=== PATIENT | male | born 1995 | race Caucasian/White ===

== ENCOUNTER 2025-01-14 09:04 | Emergency (ER) | payer OTHER, SELFPAY ==
[2025-01-14 09:05] VITALS: BP 190/142; PULSE 89; RESP 16; TEMP 36.6; O2SAT 99; BMI 35.6
--- NOTE | 2025-01-14 09:18 | EX.ED.GENINJ ---
HPI History of Present Illness Chief Complaint: Head Injury Informant: patient Narrative Narrative: 29-year-old male presenting to the emergency room with head injury. Patient was at work today using a left when it slipped and he tried to catch it falling forward into the metal resulting in a head injury. He notes bleeding from the left side of his forehead. He is unsure of his last tetanus. There is no loss of conscious nausea vomiting significant headache neck pain vision changes. Tetanus Immunization: Unknown PFSH PFSH Allergy/AdvReac Type Severity Reaction Status Date / Time No Known Allergies Allergy Verified 01/14/25 09:05 ROS ROS ED Constitutional Constitutional ED: Denies chills, fever(s) or weight loss Eyes Eyes: Denies blurry vision, change in vision or diplopia ENT ENT ED: Denies ear pain, rhinorrhea or sore throat Cardiovascular Cardiovascular: Denies chest pain, orthopnea, palpitations or racing heartbeat Respiratory/Chest Respiratory/Chest: Denies cough, dyspnea or orthopnea Gastrointestinal Gastrointestinal: Denies abdominal pain, diarrhea, nausea or vomiting Genitourinary Genitourinary ED: Denies dysuria, hematuria or urinary frequency Musculoskeletal Musculoskeletal: Denies arthralgias or myalgias Integumentary Reports other Details: Scalp laceration ; Denies abscess or rash Neurologic Neurologic: Denies headache(s), paresthesias or weakness Psychiatric Psychiatric: Denies anxiety, depression, suicidal ideation or suicidal thoughts Endocrine Endocrinology: Denies polydipsia, polyphagia or polyuria Allergic/Immunologic Allergic/Immunologic ED: Denies mouth swelling, tongue swelling or urticaria EXAM Physical Exam Const Vital Signs: 01/14/25 09:05 Temperature 97.8 F Temperature Source Oral Pulse Rate 89 Respiratory Rate 16 Blood Pressure 190/142 H Blood Pressure Mean 158 Pulse Ox 99 Oxygen Delivery Method Room Air Positive well nourished and well developed General Appearance ED: well developed HEENT Reports normocephalic, head/scalp atraumatic and moist mucous membranes HEENT Narrative: There is a 3 cm linear left frontal scalp laceration that is gaping by about 3 mm. No palpable bony depressions. Wound appears clear. Eyes PERRL and EOMs intact bilaterally Neck full ROM, no lymphadenopathy, supple and no JVD General: Negative for tenderness Resp normal respiratory effort and clear to auscultation bilaterally Cardio regular rate, regular rhythm and no murmurs GI normal to inspection, nondistended, normoactive bowel sounds and non-tender Palpation: soft Back/Spine no CVA tenderness and normal ROM Extremity normal to inspection General Extremety ED: Negative for edema General Extremity: Negative for edema Neuro oriented x3 and CN's II-XII intact bilaterally Sensorium / Orientation: alert Motor Exam: strength 5/5 throughout Psych mental status grossly normal Mood & Affect: Negative for depressed or tearful Skin no rashes or lesions noted and no wounds MDM MDM MDM Narrative Medical decision making narrative: Differential diagnosis includes but not limited to laceration foreign body skull fracture concussion intracranial hemorrhage Wound was locally anesthetized using 1% lidocaine washed with Shur-Clens and explored. It was closed using five (#5) 4-0 Ethilon sutures. No foreign bodies were noted. Good wound approximation homeostasis was obtained. Wound care discussed with patient. I do not feel based on the examination and the patient's current symptoms that he requires advanced imaging. Precautions discussed with patient. Stitches will need to be removed 5 to 7 days. Return if worsening or concerns. Tetanus was updated. History & Record Review Discussion w/independent historian: Patient Discharge Plan Triage Chief Complaint: Head Injury ED Provider: Jose Angel Pugh Dx/Rx/DC Orders Clinical Impression: Head injury, Laceration of scalp Instructions: ED Head Injury (Adult), ED Laceration, All Closures Referrals: [facility] [Provider Group] - 7 Days for suture removal Referral Note: Stitches need to be removed in 5 to 7 days Print Language: Chinese Disposition Disposition: Home, Self Care
[2025-01-14] MEDS: Lidocaine 1% (20 ml mdv) 20 ML Vial INFILT (09:40)
[2025-01-14 09:55] VITALS: BP 117/64; PULSE 69; RESP 17; TEMP 36.9; O2SAT 100
--- NOTE | 2025-01-14 09:56 | ED.RN ---
Unknown if patient needs drug or alcohol screening for workers comp as office to answer that is not open. Pt. instructed that if that testing is needed, he would need to go to [facility] for testing.
== END 2025-01-14 09:57 | disposition home or self-care (01) ==
LOC: ED 09:50
PROVIDERS: Emergency Provider Emergency Medicine; Visit Provider Emergency Medicine
DX: S01.01XA Laceration without foreign body of scalp, initial encounter (principal); Z23 Encounter for immunization; W26.8XXA Contact with other sharp object(s), not elsewhere classified, initial encounter
CPT/HCPCS: 12002; 90715; 99283